=== PATIENT | female | born 1990 | race Caucasian/White ===

== ENCOUNTER 2017-01-18 11:59 | Emergency (ER) | payer OTHER ==
[~2017-01-18] VITALS: Ht 127 cm; Wt 47.6 kg
[2017-01-18 12:36] VITALS: BP 112/74
--- NOTE | 2017-01-18 13:06 | NUR ---
PATIENT PRESENTS TO ED WITH C/O LT EYE PAIN X 4 DAYS; RED BUMP ON LOWER EYE LID; PT STATES SHE HAS BLURRY OF VISSION SOMETIMES. DENIES N/V/D; SKIN IS PINK/WARM/DRY; AAOX4 WITH EVEN AND STEADY GAIT; LUNGS CLEAR BL; HR EVEN AND REGULAR; PT DENIES ANY FEVER, CP, SOB, OR COUGH AT THIS TIME; PATIENT STATES PAIN OF 7/10 AT THIS TIME;PATIENT POSITIONED FOR COMFORT; HOB ELEVATED; BEDRAILS UP X2; BED DOWN. ER MD MADE AWARE OF PT STATUS.
--- NOTE | 2017-01-18 13:33 | NUR ---
CEZAR BECKER AT BEDSIDE.
--- NOTE | 2017-01-18 13:41 | NUR ---
Patient discharged with v/s stable. Written and verbal after care instructions given and explained. Patient alert, oriented and verbalized understanding of instructions. Ambulatory with steady gait. All questions addressed prior to discharge. ID band removed. Patient advised to follow up with PMD. Rx of CIPROFLOXACIN OPTHALMIC SOLUTION given. Patient educated on indication of medication including possible reaction and side effects. Opportunity to ask questions provided and answered.
[2017-01-18 13:42] VITALS: BP 124/76
== END 2017-01-18 13:41 | disposition home or self-care (01) ==
LOC: MED 11:59
DX: H00.015 Hordeolum externum left lower eyelid (principal)
CPT/HCPCS: 99283

== ENCOUNTER 2020-10-14 12:31 | Emergency (ER) | payer MEDICAID, OTHER ==
[~2020-10-14] VITALS: Ht 160 cm; Wt 56.7 kg
[2020-10-14 12:38] VITALS: BP 149/81
[2020-10-14] MEDS ORDERED: KETOROLAC 30 MG/ML VIAL IM ONE (13:20)
[2020-10-14] MEDS ORDERED: IBUP-2213 PO (14:07)
[2020-10-14] MEDS ORDERED: ACET-9527 PO (14:07)
[2020-10-14] MEDS ORDERED: CYCL-711 PO (14:19)
[2020-10-14] MEDS ORDERED: PRED20TA5 PO (14:19)
[2020-10-14 14:27] VITALS: BP 139/80
== END 2020-10-14 14:28 | disposition home or self-care (01) ==
LOC: MED 12:31
DX: S16.1XXA Strain of muscle, fascia and tendon at neck level, initial encounter (principal); X58.XXXA Exposure to other specified factors, initial encounter; Y93.89 Activity, other specified; Y92.89 Other specified places as the place of occurrence of the external cause; Y99.8 Other external cause status
CPT/HCPCS: 72040; 96372; 99283; J1885

== ENCOUNTER 2022-02-19 07:28 | Emergency (ER) | payer MEDICAID, OTHER ==
[~2022-02-19] VITALS: Ht 160 cm; Wt 58.1 kg
[~2022-02-19 07:28] MED LIST: CYCL-711 PO; PRED20TA5 PO
[2022-02-19 07:32] VITALS: BP 114/70
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
--- NOTE | 2022-02-19 08:24 | NUR ---
Dr. Sharpe evaluating patient at bedside.
[2022-02-19] MEDS ORDERED: ONDANSETRON 4 MG/2 ML VIAL IVP ONE (08:35)
[2022-02-19] MEDS ORDERED: KETOROLAC 30 MG/ML VIAL IVP ONE (08:35)
--- NOTE | 2022-02-19 08:50 | NUR ---
Ultrasound at bedside.
[2022-02-19 09:17] LABS: BASOPHILS % (AUTO) 0.5 % (0.0-2.0); EOSINOPHILS % (AUTO) 0.6 % (0.0-4.0); HEMATOCRIT 36.5 % (36-48); HEMOGLOBIN 12.2 g/dL (12.0-16.0); LYMPHOCYTES % (AUTO) 14.7 % (20.5-51.1); MEAN CORPUSCULAR HEMOGLOBIN 27 pg (27-31); MEAN CORPUSCULAR HGB CONC 33 g/dL (33-37); MONOCYTES # (AUTO) 0.8 K/uL (0.8-1.0); NEUTROPHILS # (AUTO) 5.1 K/uL (1.8-7.7); NEUTROPHILS % (AUTO) 73.2 % (42.2-75.2); PLATELET COUNT (AUTO) 303 K/uL (140-450); RED BLOOD CELL COUNT(AUTO) 4.46 MIL/uL (4.20-5.40); RED CELL DISTRIBUTION WIDTH 13.9 % (11.6-13.7)
[2022-02-19 09:34] LABS: ALBUMIN 3.4 g/dL (3.4-5.0); CARBON DIOXIDE 26.2 mmol/L (21-32); CREATININE 0.7 mg/dL (0.6-1.3); POTASSIUM 4.2 mmol/L (3.5-5.1); TOTAL BILIRUBIN 0.3 mg/dL (0.0-1.0)
[2022-02-19 10:07] LABS: APPEARANCE,URINE CLEAR (CLEAR); BILIRUBIN,URINE NEGATIVE (NEGATIVE); BLOOD, URINE NEGATIVE (NEGATIVE); COLOR,URINE YELLOW (YELLOW); LEUKOCYTE ESTERASE ,URINE NEGATIVE (NEGATIVE); NITRITE, URINE NEGATIVE (NEGATIVE); PH,URINE 6.5 (5.0-9.0); UGLUCOSE NEGATIVE (NEGATIVE)
[2022-02-19 10:11] VITALS: BP 109/63
--- NOTE | 2022-02-19 10:13 | NUR ---
Dr. Sharpe re-evaluating patient at bedside.
[2022-02-19] MEDS ORDERED: ONDA-188 PO (10:15)
[2022-02-19] MEDS ORDERED: FAMO-92 PO (10:15)
--- NOTE | 2022-02-19 10:29 | NUR ---
Patient discharged with v/s stable. Written and verbal after care instructions given. Patient alert, oriented and verbalized understanding of instructions. Ambulatory with steady gait. All questions addressed prior to discharge. ID band removed. Patient advised to follow up with PMD. Rx of Zofran and Famotodine given. Opportunity to ask questions provided and answered.
== END 2022-02-19 10:29 | disposition home or self-care (01) ==
LOC: MED 07:28
DX: R10.11 Right upper quadrant pain (principal)
CPT/HCPCS: 36415; 76705; 80053; 81003; 81025; 83690; 85025; 96374; 96375; 99284; J1885; J2405; Q0092